=== PATIENT | female | born 1970 | race Two or more races ===

== ENCOUNTER 2023-07-13 12:14 | Emergency (ER) | payer OTHER ==
[~2023-07-13] VITALS: Ht 165.1 cm; Wt 71.2 kg
[2023-07-13] MEDS ORDERED: DICLOFENAC SODI75 MG PO (15:33)
== END 2023-07-13 17:00 | disposition home or self-care (01) ==
LOC: ER 12:14
DX: S93.401A Sprain of unspecified ligament of right ankle, initial encounter (principal); W18.40XA Slipping, tripping and stumbling without falling, unspecified, initial encounter; Y93.01 Activity, walking, marching and hiking; Y92.480 Sidewalk as the place of occurrence of the external cause; Y99.9 Unspecified external cause status